=== PATIENT | male | born 1965 | race Caucasian/White ===

== ENCOUNTER 2019-05-25 09:40 | Observation (INO) | payer OTHER ==
[~2019-05-25] VITALS: Ht 198.1 cm; Wt 142.0 kg
--- NOTE | 2019-05-25 10:16 | NUR ---
first contact with pt. pt c/o chest pain intermittently with sob/palpitation/dzy for 2 days. hx [id number] @ 2018 [facility] htn pt's aox4. resps even and unlabored. all monitors in place. call light within reach. nsr rate 80's on belt sander at this time. pa at bedside to evaluate at this time.
[2019-05-25] MEDS ORDERED: ASPIRIN 81 MG TABLET CHEW ONE (10:23)
[2019-05-25] MEDS ORDERED: ASPIRIN 81 MG TABLET CHEW PO ONE ×2 (10:30→11:00)
[2019-05-25 10:32] LABS: BASOPHILS # (AUTO) 0.04 x10^3/uL (0-0.1); BASOPHILS % (AUTO) 0 % (0-1); EOSINOPHILS # (AUTO) 0.13 x10^3/uL (0-0.4); EOSINOPHILS % (AUTO) 1 % (1-7); LYMPHOCYTES # (AUTO) 2.08 x10^3/uL (1-3.4); LYMPHOCYTES % (AUTO) 22 % (22-44); MD NO; MEAN CORPUSCULAR HEMOGLOBIN 30.8 pg (27.5-34.5); MEAN CORPUSCULAR HGB CONC 33.8 g/dL (33.2-36.2); MEAN CORPUSCULAR VOLUME 90.9 fL (81-97); MEAN PLATELET VOLUME 7.7 fL (7.4-10.4); MONOCYTES # (AUTO) 0.43 x10^3/uL (0.2-0.8); MONOCYTES % (AUTO) 5 % (2-9); NEUTROPHILS # (AUTO) 6.82 x10^3/uL (1.8-6.8); NEUTROPHILS % (AUTO) 72 % (42-75); PLATELET COUNT 296 x10^3/uL (130-400); RED BLOOD COUNT 4.93 x10^6/uL (4.38-5.82); RED CELL DISTRIBUTION WIDTH 12.9 % (9.4-14.8)
--- NOTE | 2019-05-25 10:33 | NUR ---
PT TO XRAY AT THIS TIME.
--- NOTE | 2019-05-25 10:37 | NUR ---
pt back to room from xray at this time.
[2019-05-25 10:40] LABS: ALANINE AMINOTRANSFERASE 20 U/L (12-78); ALBUMIN 3.3 g/dL (3.4-5.0); ANION GAP 6 mmol/L (5-15); CALCIUM 8.3 mg/dL (8.5-10.1); CHLORIDE 107 mmol/L (98-107); CREATININE 1.04 mg/dL (0.7-1.3)
--- NOTE | 2019-05-25 10:42 | NUR ---
pt medicated per emar. pt tolerated well. pt's aox4. resps even and unlabored.
[2019-05-25 10:44] LABS: ALKALINE PHOSPHATASE 90 U/L (45-117); BILIRUBIN,TOTAL 0.5 mg/dL (0.2-1.0); TOTAL PROTEIN 6.9 g/dL (6.4-8.2); TROPONIN I < 0.015 ng/mL (0.000-0.045)
--- NOTE | 2019-05-25 10:54 | NUR ---
ALL RESULTS BACK AT THIS TIME, CHART UP FOR RECHECK.
--- NOTE | 2019-05-25 11:18 | NUR ---
AT BEDSIDE FOR EXAM.
--- NOTE | 2019-05-25 11:21 | NUR ---
REPORT GIVEN TO ROB BARBA.
[2019-05-25] MEDS ORDERED: AMLO10TA8 PO (11:23)
[2019-05-25] MEDS ORDERED: ATOR40TA78 PO (11:23)
[2019-05-25] MEDS ORDERED: CARV6.2512 PO (11:24)
[2019-05-25] MEDS ORDERED: METF500T17 PO (11:24)
[2019-05-25] MEDS ORDERED: LISI-167 PO (11:25)
[2019-05-25] MEDS ORDERED: ASPI-496 PO (11:25)
[2019-05-25] MEDS ORDERED: LORazepam 1MG TABLET ONE (11:56)
--- NOTE | 2019-05-25 12:02 | NUR ---
PT C/O CHEST PALPITATIONS AND ANXIETY A RESULTS, MD NOTIFIED AND NEW ORDERS RECEIVED. EKG COMPLETED.
--- NOTE | 2019-05-25 12:04 | NUR ---
PT MEDICATED PER ORDERS.
--- NOTE | 2019-05-25 12:50 | NUR ---
[facility] AT BEDSIDE.
[2019-05-25] MEDS ORDERED: ONDANSETRON 2MG/ML, 2ML IVPush ONE (13:00)
[2019-05-25] MEDS ORDERED: LORazepam 1MG TABLET PO ONE (13:00)
[2019-05-25] MEDS ORDERED: MORPHINE SULFATE 4 MG/ML, 1ML IVPush PRN (13:00)
[2019-05-25] MEDS ORDERED: MORPHINE SULFATE 4 MG/ML, 1ML ONE (13:08)
[2019-05-25] MEDS ORDERED: ONDANSETRON 2MG/ML, 2ML ONE (13:08)
--- NOTE | 2019-05-25 13:10 | NUR ---
PT MEDICATED PER ORDERS.
[2019-05-25] MEDS ORDERED: FUROSEMIDE 20 MG/2 ML ONE (13:59)
[2019-05-25] MEDS ORDERED: FUROSEMIDE 20 MG/2 ML IV ONE (14:00)
[2019-05-25] MEDS ORDERED: NITROGLYCERIN 0.4 MG/SPRAY SL PRN (14:00)
[2019-05-25] MEDS ORDERED: morphine SULFATE 10 MG/ML, 1ML IV PRN (14:00)
[2019-05-25] MEDS ORDERED: BACLOFEN 10 MG TABLET PO PRN (14:00)
[2019-05-25] MEDS ORDERED: DEXTROSE 50%, 50ML SYRINGE IVPush PRN (14:00)
[2019-05-25] MEDS ORDERED: ACETAMINOPHEN 325 MG TABLET PO PRN (14:00)
[2019-05-25] MEDS ORDERED: GLUCAGON 1 MG IM PRN (14:00)
[2019-05-25] MEDS ORDERED: NITROGLYCERIN 0.4 MG BOTTLE (25 TABS) SL PRN (14:00)
[2019-05-25] MEDS ORDERED: DEXTROSE 4 GM TAB.CHEW PO PRN (14:00)
[2019-05-25] MEDS ORDERED: ONDANSETRON 2MG/ML, 2ML IV PRN (14:00)
[2019-05-25 14:09] LABS: CHOL/HDL RATIO 3.3; LDL/HDL RATIO 1.5 (0.5-3.0)
--- NOTE | 2019-05-25 14:55 | NUR ---
DIET TRAY ORDERED.
--- NOTE | 2019-05-25 14:55 | NUR ---
HOSPITAL BED ORDERED FOR PT.
--- NOTE | 2019-05-25 15:18 | NUR ---
REPORT GIVEN TO FREDA DOBBS. PT TO TRANSFER WITH ALL BELONGINGS TO INPATIENT ROOM.
[2019-05-25] MEDS ORDERED: HYDROcodone/APAP 5/325 TABLET ONE (15:21)
[2019-05-25 16:02] VITALS: BP 116/63
[2019-05-25] MEDS: morphine SULFATE 10 MG/ML, 1ML IVPush PRN ×2 (16:30→20:51)
[2019-05-25] MEDS: INSULIN LISPRO 100 UNITS/ML, PEN SQ-INSULIN SCH ×2 (17:09→20:15)
[2019-05-25 19:25] VITALS: BP 140/69
[2019-05-25] MEDS: CARVEDILOL 6.25 MG TABLET PO SCH (20:12)
[2019-05-25] MEDS: SODIUM CHLORIDE FLUSH 10ML SYR IVF SCH (20:12)
[2019-05-25 20:40] LABS: TROPONIN I < 0.015 ng/mL (0.000-0.045)
[2019-05-25] MEDS ORDERED: ATORVASTATIN 40 MG TABLET PO SCH (21:00)
[2019-05-25] MEDS ORDERED: SODIUM CHLORIDE FLUSH 10ML SYR IVF SCH (21:00)
[2019-05-25] MEDS ORDERED: AMLODIPINE 10 MG TAB PO SCH (21:00)
[2019-05-26 01:25] VITALS: BP 142/81
[2019-05-26 02:32] LABS: TROPONIN I < 0.015 ng/mL (0.000-0.045)
[2019-05-26] MEDS ORDERED: ASPIRIN 325 MG TABLET EC PO SCH (06:00)
[2019-05-26] MEDS: morphine SULFATE 10 MG/ML, 1ML IVPush PRN (06:17)
[2019-05-26] MEDS: INSULIN LISPRO 100 UNITS/ML, PEN SQ-INSULIN SCH ×3 (07:00→16:00)
[2019-05-26 07:58] VITALS: BP 131/68
[2019-05-26] MEDS ORDERED: AMLODIPINE 10 MG TAB PO SCH (09:00)
[2019-05-26] MEDS ORDERED: LISINOPRIL 10 MG TABLET PO SCH ×2 (09:00)
[2019-05-26] MEDS ORDERED: ASPIRIN 81 MG TABLET EC PO SCH (09:00)
[2019-05-26] MEDS: SODIUM CHLORIDE FLUSH 10ML SYR IVF SCH (09:00)
[2019-05-26] MEDS: CARVEDILOL 6.25 MG TABLET PO SCH (09:10)
[2019-05-26] MEDS: OXYcodone IR 5MG TABLET PO PRN ×2 (12:23→17:06)
[2019-05-26 14:01] VITALS: BP 148/73
[2019-05-26] MEDS ORDERED: POTASSIUM CHLORIDE 20 MEQ TAB.ER.PRT PO ONE (16:00)
[2019-05-26] MEDS ORDERED: LISI-167 PO (17:40)
[2019-05-26] MEDS ORDERED: METH750T87 PO (17:40)
[2019-05-26] MEDS ORDERED: ACET325T26 PO (17:40)
== END 2019-05-26 19:50 | disposition home or self-care (01) ==
LOC: ED 12:41 → INTOOBSV 13:02 → EDIP 13:02 → 5SO 16:07
PROVIDERS: ADMIT Hospitalist; ATTEND Hospitalist
DX: R07.89 Other chest pain (principal); E11.9 Type 2 diabetes mellitus without complications; R00.2 Palpitations; R55 Syncope and collapse; I10 Essential (primary) hypertension; R60.9 Edema, unspecified; E78.5 Hyperlipidemia, unspecified; I25.10 Atherosclerotic heart disease of native coronary artery without angina pectoris; F17.200 Nicotine dependence, unspecified, uncomplicated; R53.1 Weakness; I08.9 Rheumatic multiple valve disease, unspecified; Z79.899 Other long term (current) drug therapy; Z79.82 Long term (current) use of aspirin; Z95.1 Presence of aortocoronary bypass graft; Z96.611 Presence of right artificial shoulder joint; Z98.1 Arthrodesis status
CPT/HCPCS: 36415; 71046; 80053; 80061; 82962; 83036; 83735; 83880; 84484; 85025; 85379; 93005; 96374; 96375; 96376; 99285; C8929; G0378; J1815; J1940; J2270; J2405; Q9957